=== PATIENT | female | born 1990 | race Caucasian/White ===

== ENCOUNTER 2016-12-17 14:16 | Emergency (ER) | payer SELFPAY ==
[~2016-12-17] VITALS: Ht 162.6 cm; Wt 73.0 kg
[2016-12-17 15:18] VITALS: Ht 162.6 cm; Wt 73.0 kg
[2016-12-17] MEDS ORDERED: KETOROLAC 30 MG INJ IM STA (15:45)
--- NOTE | 2016-12-17 15:48 | ERD ---
ER Documentation Chief Complaint Date/Time DATE: 12/17/16 TIME: 15:40 Chief Complaint LEFT RING FINGER SWELLING & PAIN X 3 DAYS DUE TO A FALL HPI 26 y/o female presents to ED for left ring/fourth finger swelling and pain for 3 days secondary to mechanical fall. Stated that she tripped and fell, landed in her left hand injuring her left fourth/ring finger. Pain was described as achy non-radiating with a pain rate of 6/10 at this time. Denies headache, loss of consciousness, dizziness, blurry vision, changes in vision, photophobia, facial pain, ear pain, throat pain, difficulty swallowing, neck pain, shoulder pain, chest pain, cough, hemoptysis, abdominal pain, back pain, loss of appetite, nausea, vomiting, hematochezia, diarrhea, constipation, urinary symptoms, , the possibility of being , bladder and bowel incontinences, numbness or tingling sensation, difficulty walking, recent travel, recent exposure to illness, recent antibiotic use in the last 3 months, fever, chills. Allergy: NKDA PMH: Denies. Family medical history: Denies. AO LMP: 12/02/2016 Medications: Denies. Surgery: Denies. Primary Social History: Right-handed. Not working at this time. Smokes about 6 sticks of tobacco cigars a day. Denies use of alcohol, use of illegal drugs. ROS All systems reviewed and are negative except as per history of present illness. Physical Exam Vitals Vital Signs Date Time Temp Pulse Resp B/P Pulse Ox O2 Delivery O2 Flow Rate FiO2 12/17/16 15:18 98.1 64 20 128/66 100 Physical Exam CONSTITUTIONAL: Well-appearing; well-nourished; in no apparent distress. HEAD: Normocephalic; atraumatic. EYES: Conjunctiva clear, sclera non-icteric, EOM intact. PERRL Ears: Hearing intact. EACs clear, TMs non-bulging, non-inflamed, translucent & mobile, ossicles normal appearance, No obstructions, no erythema, no discharges Nose: No obstructions. No polyps. No external lesions. Mucosa non-inflamed. No external lesions, septum and turbinates normal. No rhinorrhea. No discharges. Frontal sinus is non-tender to palpation. Maxillary sinus is non-tender to palpation. MOUTH: Moist mucous membranes, no lesion, no obstructions, no vesicles, no thrush, patent airway Throat: Uvula in midline. Right tonsil is +1 with no erythema, no exudate. Left tonsil is +1 with no erythema, no exudate. Tolerating secretions well. Good gag reflex. Patent airway. Neck: Supple, without lesions, bruits, or adenopathy. No mass. Thyroid non- enlarged and non-tender to palpation. CHEST: Symmetrical chest. Respirations even and not labored. No retractions noted. CARDIOVASCULAR: Normal S1, S2. RRR. No murmurs, gallops. RESPIRATORY: Normal chest excursion with respiration; breath sounds clear and equal bilaterally; no wheezes, rhonchi, or rales. Breathing even and unlabored. Speaking in clear, full, and complete sentences w/ ease. ABDOMEN: Normal bowel sounds normal. Soft, round, non-distended, non-guarding, no tenderness, no rebound, no organomegaly, no masses, no pulsating abdominal mass. No hernia. No peritoneal signs. : No CVA tenderness. BACK: Symmetrical shoulder. Spine is midline without deformity, tenderness. No evidence of trauma or deformity. PELVIS: Stable pelvis. No evidence of trauma or deformity. MUSCULOSKELETAL: Normal gait and station. No misalignment, asymmetry, crepitation, defects, tenderness, masses, effusions, decreased range of motion, instability, atrophy or abnormal strength or tone in the head, neck, spine, ribs , pelvis or extremities except left ring/fourth finger on proximal interphalangeal joint has limited flexion with good extension (5/5), volar and dorsal aspect of finger mild swelling/deformity tenderness with no discoloration. Circulation sensation is intact. No neurovascular deficits. Left pinky/fifth, middle/third, second/index fingers, some are unremarkable with full function on physical examination. Left metacarpals/wrist/elbow/ shoulder is unremarkable and physical examination. Right upper extremity, and bilateral lower extremities are unremarkable on physical examination. No calf tenderness. NEUROVASCULAR: Distal pulses are present. Pedal pulse are present, equal, and normal. Capillary refills are < 2 seconds. NEUROLOGIC: Alert and oriented x4. Speaks full and clear sentences. Cranial Nerves II-XII normal. Sensation to pain, touch, and proprioception normal. Grossly unremarkable. No neurologic deficits. Romberg test is negative. PSYCHOLOGICAL: The patients mood and manner are appropriate. No hallucinations , delusions. Not SI. Not HI. Has the capacity to decide for self SKIN: Normal for age and ethnicity; warm; dry; good turgor; no apparent lesions or exudates. No rashes, hives, discoloration. Intact. Results 24 hrs Current Medications Medications (Trade) Dose Ordered Sig/Leland Route PRN Reason Start Time Stop Time Status Last Admin Dose Admin Ketorolac Tromethamine (Toradol) 30 mg ONCE STAT IM 12/17/16 15:45 12/17/16 15:47 DC 12/17/16 15:59 Procedures/MDM Examination: MUSCULOSKELETAL: Normal gait and station. No misalignment, asymmetry, crepitation, defects, tenderness, masses, effusions, decreased range of motion, instability, atrophy or abnormal strength or tone in the head, neck, spine, ribs , pelvis or extremities except left ring/fourth finger on proximal interphalangeal joint has limited flexion with good extension (5/5), volar and dorsal aspect of finger mild swelling/deformity tenderness with no discoloration. Circulation sensation is intact. No neurovascular deficits. Left pinky/fifth, middle/third, second/index fingers, some are unremarkable with full function on physical examination. Left metacarpals/wrist/elbow/ shoulder is unremarkable and physical examination. Right upper extremity, and bilateral lower extremities are unremarkable on physical examination. No calf tenderness. Disease process, medical treatment was explained to the patient and family member. They verbalized understanding and agreed with the diagnostic tests, medical treatment, and follow-up care. Radiology: X-ray of the left hand. Findings: There is an oblique fracture of the fourth middle phalanx near the DIP joint. No definite articular surface involvement. The remaining osseous structures are intact. There is no radiopaque foreign body. Impression: Oblique, minimally displaced fracture of the fourth middle phalanx near the DIP joint. Case and medical management was discussed with supervising physician, Dr. Quirino Hyatt. He agreed with present treatment and after care. POC urine : Negative. Treatment: Toradol IM. Finger splint application. Re-evaluation: Denies pain. No neurovascular deficits prior to and after the application of finger splint. Consultation: None. Differential diagnosis: Fracture versus dislocation versus contusion versus sprain Medical decision [id number] y/o female presents to ED for left ring/fourth finger swelling and pain for 3 days secondary to mechanical fall. Stated that she tripped and fell, landed in her left hand injuring her left fourth/ring finger. Pain was described as achy non-radiating with a pain rate of 6/10 at this time. Patient's complaint, patient's history, my physical findings, diagnostic test result, my re-evaluation are consistent with my final diagnosis of oblique, minimally displaced fracture of the fourth middle phalanx near the DIP joint. Medications prescribed are the following: Motrin for pain. Patient and family member are made aware of the side effects and adverse reactions of the medications prescribed. Instructed on when to seek emergent and medical attention in case allergic/anaphylactic reactions or severe side effects and or adverse reactions to medications. Patient and family member verbalized understanding. Patient instructed Instructed to follow-up with his PCP in 24-48 hours. PCP to refer patient to orthopedic doctor in the next 24-48 hours. Community resources was also provided to the patient. Instructed to Call 911 for chest pain, shortness of breath. Advised to come back here in ED as soon as possible for severity of symptoms which includes but not limited to: any new symptoms; shortness of breath/difficulty of breathing; cardiovascular changes; severe gastrointestinal symptoms; signs and symptoms of bleeding and or infection; signs of compartment syndrome/neurovascular changes; neurological changes/deficits. Patient and family member verbalized understanding. Upon discharge, patient is alert and oriented x 4, speaks full and clear sentences, denies pain, has no neurological deficits, has no neurovascular deficits, difficulty of breathing. Breathing even and unlabored. Lung sounds are clear to auscultation. Not in distress. Appears comfortable. Ambulatory with steady gait. Appears satisfied with care provided here in ED. Departure Diagnosis: Primary Impression: Fracture Additional Impression: Finger injury Encounter type: initial encounter Laterality: left Qualified Code: S69.92XA - Finger injury, left, initial encounter Condition: Good Additional Instructions: Follow-up with PCP in the next 24-48 hours. PCP to refer patient to orthopedic doctor in the next 24-48 hours. SOLO WILLIAM Dec 17, 2016 15:48
--- NOTE | 2016-12-17 17:13 | RADRPT ---
PROCEDURE: XR left Hand. CLINICAL INDICATION: Pain and swelling TECHNIQUE: Three views of the left hand were obtained. COMPARISON: No prior studies are available for comparison. FINDINGS: There is an oblique fracture of the fourth middle phalanx near the DIP joint. No definite articular surface involvement. The remaining osseous structures are intact. There is no radiopaque foreign b lori. IMPRESSION: 1. Oblique, minimally displaced fracture of the fourth middle phalanx near the DIP joint. RPTAT: TT .Bishnu Verdin MD, MD Date Time Electronically viewed and signed by .Bishnu Verdin MD, MD on 12/17/2016 17:13 .d/
[2016-12-17] MEDS ORDERED: IBUP-1542 PO (17:24)
== END 2016-12-17 17:50 | disposition home or self-care (01) ==
LOC: FTE 14:16
DX: S62.625A Displaced fracture of middle phalanx of left ring finger, initial encounter for closed fracture (principal); F17.210 Nicotine dependence, cigarettes, uncomplicated; W01.0XXA Fall on same level from slipping, tripping and stumbling without subsequent striking against object, initial encounter; Y92.9 Unspecified place or not applicable
CPT/HCPCS: 29130; 73130; 96372; 99284; J1885